=== PATIENT | male | born 1940 | race Caucasian/White ===

== ENCOUNTER → 2016-10-03 | Outpatient (CLI) | payer MEDICARE ==
--- NOTE | 2016-10-03 13:48 | NM ---
EXAMINATION TYPE: NM bone scan whole body DATE OF EXAM: 10/03/2016 1:42 PM COMPARISON: [facility] 09/26/2016 HISTORY: Low back pain Delayed whole-body scanning was performed following the injection of 27.5 mCi Tc 99m MDP. Images wer e acquired 3 hours post injection. FINDINGS: There is a diffuse band of increased uptake in the region of L1 suspicious for an acute compression d eformity. There is some focal uptake within the lateral left knee most likely degenerative in nature. This is b lizz visualized on the posterior image. There is some focal uptake within the C7 level. Correlate fo r degenerative change. Some degenerative changes are at the bilateral wrists. IMPRESSION: 1. Increased uptake in the L1 region corresponds to the compression deformity identified on the plain films suggesting this is likely an acute finding.
== END | disposition home or self-care (01) ==
LOC: RADNMMAIN 09:58
PROVIDERS: ATTEND Physical Medicine & Rehabilitation
DX: M54.5 Low back pain (principal); M48.06 Spinal stenosis, lumbar region; M47.896 Other spondylosis, lumbar region
CPT/HCPCS: 78306; A9503

== ENCOUNTER → 2017-04-01 | Outpatient (CLI) | payer MEDICARE ==
--- NOTE | 2017-04-01 21:48 | US ---
EXAMINATION TYPE: US kidneys/renal and bladder DATE OF EXAM: 04/01/2017 COMPARISON: CT 06/23/2014 CLINICAL HISTORY: 76-year-old male Renal Cyst N28.1. TECHNIQUE: Multiple sonographic images of the kidneys and bladder were obtained. FINDINGS: Right Kidney: 10.4 x 4.4 x 5.0 cm without hydronephrosis. Left Kidney: 10.2 x 5.7 x 5.5 cm without hydronephrosis. There is a cystic structure within the upper pole measuring 2.7 cm. Posterior transmission is present. Internal low-level echoes could be artifac tual or represent some debris. Increased in size from 2.1 cm in 2013. No gross abnormality of the bladder. Both ureteral jets are visualized. IMPRESSION: 1. No hydronephrosis. 2. A 2.7 cm left upper pole renal cyst. Internal echoes could be artifactual or could represent some debris.
== END | disposition home or self-care (01) ==
LOC: RADUSMAIN 17:26
PROVIDERS: ATTEND Family Medicine
DX: N28.1 Cyst of kidney, acquired (principal)
CPT/HCPCS: 76770

== ENCOUNTER → 2018-03-05 | Outpatient (CLI) | payer MEDICARE ==
--- NOTE | 2018-03-05 12:27 | US ---
EXAMINATION TYPE: US venous doppler duplex LE LT DATE OF EXAM: 03/05/2018 12:06 PM COMPARISON: US 08/20/14 CLINICAL HISTORY: [id number] PAIN IN LT LEG,[id number] ACUTE EMBOLISM AND THROMBOSIS. SIDE PERFORMED: Left TECHNIQUE: The lower extremity deep venous system is examined utilizing real time linear array sonog otoniel with graded compression, doppler sonography and color-flow sonography. VESSELS IMAGED: External Iliac Vein (EIV) Common Femoral Vein Deep Femoral Vein Greater Saphenous Vein * Femoral Vein Popliteal Vein Small Saphenous Vein * Proximal Calf Veins (* superficial vessels) Grayscale, color doppler, spectral doppler imaging performed of the deep veins of the left lower extr emity. There is normal flow, compressibility, vascular waveforms. Left Leg: Negative for DVT Superficial thrombus again seen at level of the knee, medially. This is at the level of swelling per patient history and sonographically. IMPRESSION: 1. No sonographic evidence of deep venous arthrosis within the left lower extremity. 2. Superficial venous thrombosis in the region of the patient's pain and swelling medially at the lev el the femoral tibial joint.
== END | disposition home or self-care (01) ==
LOC: RADUSWWP 11:11
PROVIDERS: ATTEND Family Medicine
DX: I82.812 Embolism and thrombosis of superficial veins of left lower extremity (principal)

== ENCOUNTER → 2019-08-17 | Outpatient (CLI) | payer MEDICARE ==
--- NOTE | 2019-08-17 11:03 | XR ---
EXAMINATION TYPE: XR abdomen 2V DATE OF EXAM: 08/17/2019 HISTORY: Pain. Technique: 4 views of the abdomen are submitted. Comparison: None. Findings: There is no convincing evidence of pneumoperitoneum. The Bowel gas pattern is nonspecific and nonobstructive. No sizable air-fluid levels are seen. No mass effects are noted. No renal calcifications are identified. IMPRESSION: 1. Nonspecific nonobstructive bowel gas pattern
== END | disposition home or self-care (01) ==
LOC: RADXRYALE 10:12
PROVIDERS: ATTEND Physician Assistant Medical
DX: R10.84 Generalized abdominal pain (principal)
CPT/HCPCS: 74019

== ENCOUNTER → 2019-09-22 | Outpatient (CLI) | payer MEDICARE ==
--- NOTE | 2019-09-22 09:04 | US ---
EXAMINATION TYPE: US abdomen complete DATE OF EXAM: 09/22/2019 COMPARISON: NONE CLINICAL HISTORY: Diarrhea R19.7. EXAM MEASUREMENTS: Liver Length: 15.9 cm Gallbladder Wall: 0.4 cm CBD: obscured by bowel gas Spleen: 8.8 cm Right Kidney: 10.0 x 4.7 x 4.4 cm Left Kidney: 9.5 x 5.7 x 4.5 cm Severe overlying bowel gas, technically difficult study. Pancreas: Obscured by bowel gas Liver: left lobe obscured by overlying bowel gas, not visualized in its entirity Gallbladder: cholelithiasis, limited visualization Evidence for sonographic Longoria's sign: no CBD: Obscured by overlying bowel gas Spleen: wnl Right Kidney: wnl Left Kidney: partially obscured by bowel gas, cyst measuring 3.8 x 3.2 x 2.8cm Upper IVC: wnl Abd Aorta: wnl Bladder: wnl, prominent vessels seen posterior IMPRESSION: 1. Limited assessment of the liver and pancreas due to bowel gas. 2. Cholelithiasis.common bile duct is obscured by bowel gas. Gallbladder wall measures 4 mm and is th ickened mild cholecystitis in the differential diagnosis.
== END | disposition home or self-care (01) ==
LOC: RADUSWWP 08:05
PROVIDERS: ATTEND Family Medicine
DX: K80.20 Calculus of gallbladder without cholecystitis without obstruction (principal); R93.41 Abnormal radiologic findings on diagnostic imaging of renal pelvis, ureter, or bladder
CPT/HCPCS: 76700; 76857

== ENCOUNTER → 2020-05-04 | Outpatient (CLI) | payer MEDICARE ==
--- NOTE | 2020-05-04 15:30 | CT ---
EXAMINATION TYPE: CT brain wo con DATE OF EXAM: 05/04/2020 COMPARISON: None HISTORY: c/o headaches and dizziness CT DLP: 1108.4 mGycm Automated exposure control for dose reduction was used. Helical imaging through the brain FINDINGS: Periventricular white matter shows patchy low attenuation. Cortical atrophy is likely age-related. Th ere are cerebral vascular calcifications. Mucosal disease present within the bilateral maxillary sinu ses, sphenoid sinus, frontal sinus and ethmoid air cells. Mastoids are well aerated. Calvarium is int act. There is no hemorrhage or hydrocephalus. IMPRESSION: NO ACUTE ABNORMALITY. AGE-RELATED CHANGES OF ATROPHY AND PROBABLE CHRONIC SMALL VESSEL ISCHEMIA. SINU S DISEASE.
== END | disposition home or self-care (01) ==
LOC: RADCTMAIN 14:31
PROVIDERS: ATTEND Family Medicine
DX: G31.1 Senile degeneration of brain, not elsewhere classified (principal)
CPT/HCPCS: 70450

== ENCOUNTER → 2022-05-18 | Outpatient (CLI) | payer MEDICARE ==
--- NOTE | 2022-05-18 11:44 | US ---
EXAMINATION TYPE: US arterial LE single level DATE OF EXAM: 05/18/2022 10:44 AM CLINICAL HISTORY: M79.661 Pain right lower leg, M79.662 Pain left leg. Diabetic: No [place]: No Smoker: Previous Hyperlipidemia: No Hypertension: No TIA/CVA: No Doppler Waveforms: Right: Left: Pulse Volume Recording: Pressure Gradients: Ankle-Brachial Indices: Right: 1.20 Left: 1.25 Toe Brachial Indices: Right: 0.87 Left: 1.04 IMPRESSION: Normal DIANE and TBI values.
== END | disposition home or self-care (01) ==
LOC: RADUSWWP 10:01
PROVIDERS: ATTEND Family Medicine
DX: M79.661 Pain in right lower leg (principal); M79.662 Pain in left lower leg
CPT/HCPCS: 93922

== ENCOUNTER 2022-08-18 08:17 | Emergency (ER) | payer MEDICARE ==
[2022-08-18 08:29] VITALS: TEMP 98.9
[2022-08-18 08:59] VITALS: RESP 16
--- NOTE | 2022-08-18 09:05 | ED ---
Headache HPI - General Chief Complaint: Upper Respiratory Infection Stated Complaint: Cough, headache Time Seen by Provider: 08/18/22 08:35 Source: patient, family, RN notes reviewed Mode of arrival: ambulatory Limitations: no limitations - History of Present Illness Initial Comments: This is an 82-year-old male who presents to the emergency department for coughing, congestion, and headaches. States that over the last 2 days, he has had mild coughing and congestion. Starting last night and early this morning he has complained of a headache to the back of his head. States that he is concerned because he does not frequently get headaches, however he would not describe this as the worst headache of his life. He also denies any visual changes or weakness. He did recently start warfarin for atrial fibrillation, and his pharmacist told him that he was unable to take Tylenol, which he states he would've otherwise taken for his headache. Denies any sick contacts. Denies any fevers, chills, sore throat, dyspnea, chest pain, palpitations, abdominal pain, nausea, vomiting, diarrhea, or back pain. MD Complaint: headache Onset/Timin -: days(s) Onset Description: gradual Location: occipital Other Symptoms: cough Treatments Prior to Arrival: none - Related Data Home Medications Medication Instructions Recorded Confirmed ALPRAZolam [Xanax] 0.5 mg PO BID PRN 04/09/14 09/20/16 Acetaminophen/Diphenhydramine 1 tab PO HS 04/09/14 09/20/16 [Tylenol Pm] Fish Oil/Dha/Epa [Fish Oil 1,200 1 cap PO DAILY 04/09/14 09/20/16 mg Fish Oil] Levothyroxine Sodium [Synthroid] 112 mcg PO DAILY 04/09/14 09/20/16 Omeprazole [PriLOSEC] 20 mg PO AC-BRKFST 04/09/14 09/20/16 Pravastatin Sodium [Pravachol] 20 mg PO HS 04/09/14 09/20/16 Albuterol Nebulized [Ventolin 2.5 mg INHALATION Q4H PRN 09/20/16 09/20/16 Nebulized] Cholecalciferol [Vitamin D3] 1,000 unit PO DAILY 09/20/16 09/20/16 Ferrous Sulfate [Feosol] 325 mg PO DAILY 09/20/16 09/20/16 Naproxen Sodium [Aleve] 440 mg PO BID 09/20/16 09/20/16 Vitamin B Complex 1 cap PO HS 09/20/16 09/20/16 Previous Rx's Medication Instructions Recorded Hydrocodone/Acetaminophen [[place] 1 each PO Q6HR PRN #20 tab 09/20/16 5-325] Molnupiravir [Lagevrio (Eua)] 800 mg PO BID 5 Days #40 cap 08/18/22 Allergies Allergy/AdvReac Type Severity Reaction Status Date / Time No Known Allergies Allergy Verified 08/18/22 08:29 Review of Systems ROS Statement: Those systems with pertinent positive or pertinent negative responses have been documented in the HPI. ROS Other: All systems not noted in ROS Statement are negative. Past Medical History Past Medical History: GERD/Reflux, Hyperlipidemia, Sleep Apnea/CPAP/BIPAP, Thyroid Disorder Additional Past Medical History / Comment(s): CPAP; SUPERFICIAL BLOOD CLOT LEFT LEG History of Any Multi-Drug Resistant Organisms: None Reported Past Surgical History: Hernia Repair Additional Past Surgical History / Comment(s): carpal tunnel Past Anesthesia/Blood Transfusion Reactions: No Reported Reaction Past Psychological History: No Psychological Hx Reported Smoking Status: Former smoker Past Alcohol Use History: None Reported Past Drug Use History: None Reported General Exam Limitations: no limitations General appearance: alert, in no apparent distress Head exam: Present: atraumatic, normocephalic, normal inspection Eye exam: Present: normal appearance, PERRL, EOMI. Absent: scleral icterus, conjunctival injection, periorbital swelling Neck exam: Present: normal inspection. Absent: tenderness, meningismus, lymphadenopathy Respiratory exam: Present: normal lung sounds bilaterally. Absent: respiratory distress, wheezes, rales, rhonchi, stridor Cardiovascular Exam: Present: regular rate, normal rhythm, normal heart sounds. Absent: systolic murmur, diastolic murmur, rubs, gallop, clicks Neurological exam: Present: alert, oriented X3, CN II-XII intact Psychiatric exam: Present: normal affect, normal mood Skin exam: Present: warm, dry, intact, normal color. Absent: rash Course Vital Signs 08/18/22 08/18/22 08:26 08:58 Temperature 98.9 F Pulse Rate 82 71 Respiratory 18 16 Rate Blood Pressure 147/84 124/74 O2 Sat by Pulse 95 95 Oximetry Medical Decision Making - Medical Decision Making This is an 82-year-old male who presents to the emergency department for coughing, congestion, and headaches. Given the lack of headache history and because he recently started warfarin, computed tomography scan of the brain was obtained. I do not identify any signs of intracranial hemorrhage or mass eff ect. Patient did test positive for COVID-19. Prescription for Lagevrio provided to be taken for 5 days. Recommended getting plenty of rest and continuing with symptomatic management. The patient is also instructed to quarantine for 5 days and practice extra precautions for an additional 5 days, including always wearing a mask around others and avoiding travel. Return precautions reviewed in depth, the patient is instructed to return to the emergency department with any new, worsening, or concerning symptoms. Patient verbalized understanding. This case was discussed in detail with the attending ED physician. Presentation, findings, and treatment plan discussed in detail as well. - Lab Data Lab Results 08/18/22 08/18/22 Range/Units 08:33 08:33 Coronavirus (PCR) Detected A (Not Detectd) Influenza Type A RNA Not Detected (Not Detectd) Influenza Type B (PCR) Not Detected (Not Detectd) - Radiology Data Radiology results: report reviewed, image reviewed Disposition Clinical Impression: COVID-19, Headache Disposition: HOME SELF-CARE Instructions (If sedation given, give patient instructions): Coronavirus Disease 2019 (COVID-19), Safely Care for Someone Who Has COVID-19 (ED), How to Recover from COVID-19 at Home (ED) Additional Instructions: Return to the emergency department with any new, worsening, or concerning symptoms. Take the Lagevrio as prescribed for 5 days. Make sure that you are getting plenty of rest and continuing with symptomatic management. You are instructed to quarantine for 5 days and practice extra precautions for an additional 5 days, including always wearing a mask around others and avoiding travel. You may take Tylenol as needed for any headaches or additional pain. Prescriptions: Molnupiravir [Lagevrio (Eua)] 800 mg PO BID 5 Days #40 cap Is patient prescribed a controlled substance at d/c from ED?: No Referrals: Tico Salas DO [Primary Care Provider] - 1-2 days
--- NOTE | 2022-08-18 09:05 | CT ---
EXAMINATION TYPE: CT brain wo con DATE OF EXAM: 08/18/2022 COMPARISON: 05/04/2020 HISTORY: Headache, acute CT DLP: 1217.4 mGycm Automated exposure control for dose reduction was used. FINDINGS: The ventricles, basal cisterns and sulci over the convexities are moderately enlarged consistent with moderate generalized atrophy, appropriate for the patient's age. There is mild chronic ischemic white matter demyelination. No focal parenchymal abnormalities are seen and there is no acute bleed or mass effect. Intraorbital contents appear normal and symmetric. There are mild chronic inflammatory changes in the paranasal sinuses which were seen previously. The mastoid air cells are well aerated. The calvarium is intact. IMPRESSION: 1. NO ACUTE BLEED OR MASS EFFECT. 2. CHRONIC INFLAMMATORY CHANGES IN THE PARANASAL SINUSES WHICH ARE STABLE. 3. AGE-APPROPRIATE SENESCENT CHANGES UNCHANGED COMPARED TO PREVIOUS
[2022-08-18 10:22] VITALS: BP 148/68; PULSE 77
== END 2022-08-18 10:22 | disposition home or self-care (01) ==
LOC: EC 08:17
DX: U07.1 COVID-19 (principal); K21.9 Gastro-esophageal reflux disease without esophagitis; E78.5 Hyperlipidemia, unspecified; E07.9 Disorder of thyroid, unspecified; Z79.890 Hormone replacement therapy; Z87.891 Personal history of nicotine dependence
CPT/HCPCS: 70450; 87502; 87635; 99284

== ENCOUNTER 2024-06-03 10:09 | Emergency (ER) | payer MEDICARE ==
[2024-06-03 10:19] VITALS: TEMP 98.4
--- NOTE | 2024-06-03 10:49 | ED ---
Recheck HPI - General Chief Complaint: Recheck/Abnormal Lab/Rx Stated Complaint: Hypertenison Time Seen by Provider: 06/03/24 10:47 Source: patient, RN notes reviewed Mode of arrival: ambulatory Limitations: no limitations - History of Present Illness Initial Comments: 83-year-old male presenting to the ER with a chief complaint of elderly blood pressures. Patient reports this morning he woke up around 6 AM and took his medications around 630. He states he took his blood pressure as instructed by Dr. Arevalo's office and was found to have his blood pressure be 180s/80s. He states he is not on any antihypertensive medications typically. He does have a history of atrial fibrillation and is taking warfarin. He is also taking Synthroid 150 mcg. He denies any chest pain, shortness of breath, palpitations or other complaints when found to have blood pressure elevated. He does report drinking 2 cups of coffee this morning prior to taking his blood pressure. He states he typically feels lightheaded but states this is when he lifts his head up from a downward position. No history of vertigo. Patient denies any current chest pain, shortness of breath, dizziness, lightheadedness, palpitations, abdominal pain, constipation/diarrhea, urinary complaints or peripheral edema. - Related Data Home Medications Medication Instructions Recorded Confirmed ALPRAZolam [Xanax] 0.5 mg PO BID PRN 04/09/14 09/20/16 Acetaminophen/Diphenhydramine 1 tab PO HS 04/09/14 09/20/16 [Tylenol Pm] Fish Oil/Dha/Epa [Fish Oil 1,200 1 cap PO DAILY 04/09/14 09/20/16 mg Fish Oil] Levothyroxine Sodium [Synthroid] 112 mcg PO DAILY 04/09/14 09/20/16 Omeprazole [PriLOSEC] 20 mg PO AC-BRKFST 04/09/14 09/20/16 Pravastatin Sodium [Pravachol] 20 mg PO HS 04/09/14 09/20/16 Albuterol Nebulized [Ventolin 2.5 mg INHALATION Q4H PRN 09/20/16 09/20/16 Nebulized] Cholecalciferol [Vitamin D3] 1,000 unit PO DAILY 09/20/16 09/20/16 Ferrous Sulfate [Feosol] 325 mg PO DAILY 09/20/16 09/20/16 Naproxen Sodium [Aleve] 440 mg PO BID 09/20/16 09/20/16 Vitamin B Complex 1 cap PO HS 09/20/16 09/20/16 Previous Rx's Medication Instructions Recorded Hydrocodone/Acetaminophen [[place] 1 each PO Q6HR PRN #20 tab 09/20/16 5-325] Molnupiravir [Lagevrio (Eua)] 800 mg PO BID 5 Days #40 cap 08/18/22 Allergies Allergy/AdvReac Type Severity Reaction Status Date / Time No Known Allergies Allergy Verified 06/03/24 10:19 Review of Systems ROS Statement: Those systems with pertinent positive or pertinent negative responses have been documented in the HPI. ROS Other: All systems not noted in ROS Statement are negative. Past Medical History Past Medical History: Atrial Fibrillation, GERD/Reflux, Hyperlipidemia, Sleep Apnea/CPAP/BIPAP, Thyroid Disorder Additional Past Medical History / Comment(s): CPAP; SUPERFICIAL BLOOD CLOT LEFT LEG History of Any Multi-Drug Resistant Organisms: None Reported Past Surgical History: Hernia Repair Additional Past Surgical History / Comment(s): carpal tunnel Past Anesthesia/Blood Transfusion Reactions: No Reported Reaction Past Psychological History: No Psychological Hx Reported Smoking Status: Former smoker Past Alcohol Use History: None Reported Past Drug Use History: None Reported General Exam Limitations: no limitations General appearance: alert, in no apparent distress Respiratory exam: Present: normal lung sounds bilaterally. Absent: respiratory distress, wheezes, rales, rhonchi, stridor Cardiovascular Exam: Present: regular rate, normal rhythm, normal heart sounds. Absent: systolic murmur, diastolic murmur, rubs, gallop, clicks Extremities exam: Present: normal inspection, full ROM, normal capillary refill. Absent: tenderness, pedal edema, joint swelling, calf tenderness Neurological exam: Present: alert, oriented X3, CN II-XII intact Skin exam: Present: warm, dry, intact, normal color. Absent: rash Course Vital Signs 06/03/24 06/03/24 10:16 12:24 Temperature 98.4 F Pulse Rate 85 75 Respiratory 20 18 Rate Blood Pressure 147/93 136/80 O2 Sat by Pulse 93 L 95 Oximetry Medical Decision Making - Medical Decision Making Was pt. sent in by a medical professional or institution (, PA, MAINTENANCE FOREMAN, urgent care, hospital, or usp...) When possible be specific @ -No Did you speak to anyone other than the patient for history (EMS, parent, family, police, friend...)? What history was obtained from this source @ -Daughter, at bedside, aiding in HPI and past medical history. Did you review nursing and triage notes (agree or disagree)? Why? @ -I reviewed and agree with nursing and triage notes Were old charts reviewed (outside hosp., previous admission, EMS record, old EKG, old radiological studies, urgent care reports/EKG's, usp records)? Report findings @ -No old charts were reviewed Differential Diagnosis (chest pain, altered mental status, abdominal pain women, abdominal pain men, vaginal bleeding, weakness, fever, dyspnea, syncope, headache, dizziness, GI bleed, back pain, seizure, CVA, palpatations, mental health, musculoskeletal)? @ -Hypertension, hypertension urgency, hypertension emergency, electrolyte abnormality This list is not meant to be all-inclusive EKG interpreted by me (3pts min.). @ -As above X-rays interpreted by me (1pt min.). @ -None done CT interpreted by me (1pt min.). @ -None done U/S interpreted by me (1pt. min.). @ -None done What testing was considered but not performed or refused? (CT, X-rays, U/S, labs)? Why? @ -None What meds were considered but not given or refused? Why? @ -None Did you discuss the management of the patient with other professionals (professionals i.e. , PA, MAINTENANCE FOREMAN, lab, RT, psych nurse, licensed master social worker, head automatic sawyer, teacher, technology officer, insurance case manager)? Give summary @ -No Was smoking cessation discussed for >3mins.? @ -No Was critical care preformed (if so, how long)? @ -No Were there social determinants of health that impacted care today? How? (Homelessness, low income, unemployed, alcoholism, drug addiction, transportation, low edu. Level, literacy, decrease access to med. care, fdc, rehab)? @ -No Was there de-escalation of care discussed even if they declined (Discuss DNR or withdrawal of care, Hospice)? DNR status @ -No What co-morbidities impacted this encounter? (DM, HTN, Smoking, COPD, CAD, Cancer, CVA, ARF, Chemo, Hep., AIDS, mental health diagnosis, sleep apnea, morbid obesity)? @ -thyroid disorder Was patient admitted / discharged? Hospital course, mention meds given and route, prescriptions, significant lab abnormalities, going to OR and other pertinent info. @ -83-year-old male presented the ER with a chief complaint of elevated blood pressure. Patient is not on any antihypertensive medications. History and physical exam completed. Vitals upon arrival marker for temperature 98.4, heart rate 85, respiratory rate 20, blood pressure 147/93, oxygen saturation 93% on room air. Patient in no signs of acute distress and nontoxic-appearing. Exam unremarkable. Laboratory studies obtained unimpressive. TSH 0.952. EKG showing sinus rhythm with no acute evidence of infarct or ischemia. Upon reevaluation, patient resting comfortably in exam room in no signs of acute distress. Results discussed with patient, all questions answered. Advised patient to follow-up with PCP for further evaluation of blood pressure. Had a lengthy discussion with patient about variability of blood pressures and multiple factors affect blood pressures. Patient verbally expressed understanding and agreement. Patient stable for discharge at this time. Return parameters discussed. Patient discharged in stable condition. Case discussed with ED attending, Dr. Collins. Undiagnosed new problem with uncertain prognosis? @ -No Drug Therapy requiring intensive monitoring for toxicity (Heparin, Nitro, Insulin, Cardizem)? @ -No Were any procedures done? @ -No Diagnosis/symptom? @ -Blood pressure check Acute, or Chronic, or Acute on Chronic? @ -acute Uncomplicated (without systemic symptoms) or Complicated (systemic symptoms)? @ -uncomplicated Side effects of treatment? @ -No Exacerbation, Progression, or Severe Exacerbation? @ -No Poses a threat to life or bodily function? How? (Chest pain, [place], [place], pneumonia, PE, COPD, DKA, ARF, appy, cholecystitis, CVA, Diverticulitis, Homicidal, Suicidal, threat to staff... and all critical care pts) @ -No - Lab Data Result diagrams: 06/03/24 10:53 06/03/24 10:53 Lab Results 06/03/24 06/03/24 Range/Units 10:53 10:53 WBC 10.5 (3.8-10.6) k/uL RBC 4.27 L (4.30-5.90) m/uL Hgb 14.4 (13.0-17.5) gm/dL Hct 43.3 (39.0-53.0) % MCV 101.5 H (80.0-100.0) fL MCH 33.6 (25.0-35.0) pg MCHC 33.1 (31.0-37.0) g/dL RDW 12.3 (11.5-15.5) % Plt Count 343 (150-450) k/uL MPV 7.5 Neutrophils % 91 % Lymphocytes % 5 % Monocytes % 3 % Eosinophils % 0 % Basophils % 0 % Neutrophils # 9.6 H (1.3-7.7) k/uL Lymphocytes # 0.5 L (1.0-4.8) k/uL Monocytes # 0.4 (0-1.0) k/uL Eosinophils # 0.1 (0-0.7) k/uL Basophils # 0.0 (0-0.2) k/uL Sodium 137 (137-145) mmol/L Potassium 4.2 (3.5-5.1) mmol/L Chloride 105 (98-107) mmol/L Carbon Dioxide 24 (22-30) mmol/L Anion Gap 8 mmol/L BUN 22 H (9-20) mg/dL Creatinine 1.01 (0.66-1.25) mg/dL Est GFR (CKD-EPI)AfAm 79 (>60 ml/min/1.73 sqM) Est GFR (CKD-EPI)NonAf 68 (>60 ml/min/1.73 sqM) Glucose 111 H (74-99) mg/dL Calcium 9.6 (8.4-10.2) mg/dL Total Bilirubin 0.7 (0.2-1.3) mg/dL AST 32 (17-59) U/L ALT 22 (4-49) U/L Alkaline Phosphatase 67 (38-126) U/L Total Protein 7.1 (6.3-8.2) g/dL Albumin 4.3 (3.5-5.0) g/dL TSH 0.952 (0.465-4.680) mIU/L - EKG Data -: EKG Interpreted by Me EKG Comments: EKG taken at 11: 44 showing a sinus rhythm. No acute ST segment or T wave abnormalities. Ventricular rate 65, NM interval 182, QRS duration 112, QT/QTc 410/422. Disposition Clinical Impression: Blood pressure check Disposition: HOME SELF-CARE Condition: Stable Instructions (If sedation given, give patient instructions): How to Take a Blood Pressure (ED) Additional Instructions: Continue take medications as prescribed. Follow-up with PCP next 1 to 2 days. Return to the ER for any new or worsening concerns. Is patient prescribed a controlled substance at d/c from ED?: No Referrals: Tico Salas DO [Primary Care Provider] - 1-2 days Time of Disposition: 12:15
[2024-06-03 11:16] LABS: Basophils % (A) 0 %; Eosinophils # (A) 0.1 k/uL (0-0.7); Eosinophils % (A) 0 %; HCT 43.3 % (39.0-53.0); HGB 14.4 gm/dL (13.0-17.5); Lymphocytes # (A) 0.5 k/uL (1.0-4.8); Lymphocytes % (A) 5 %; MCH 33.6 pg (25.0-35.0); MCHC 33.1 g/dL (31.0-37.0); MCV 101.5 fL (80.0-100.0); Mean Platelet Volume 7.5; Monocytes # (A) 0.4 k/uL (0-1.0); Monocytes % (A) 3 %; Neutrophils # (A) 9.6 k/uL (1.3-7.7); Neutrophils % (A) 91 %; Platelet Count 343 k/uL (150-450); RBC 4.27 m/uL (4.30-5.90); RDW 12.3 % (11.5-15.5); WBC 10.5 k/uL (3.8-10.6)
[2024-06-03 11:28] LABS: ALT 22 U/L (4-49); AST 32 U/L (17-59); African American GFR (CKD) 79 (>60 ml/min/1.73 sqM); Albumin 4.3 g/dL (3.5-5.0); Alkaline Phosphatase 67 U/L (38-126); Anion Gap 8 mmol/L; Blood Urea Nitrogen 22 mg/dL (9-20); Calcium 9.6 mg/dL (8.4-10.2); Carbon Dioxide 24 mmol/L (22-30); Chloride 105 mmol/L (98-107); Glucose 111 mg/dL (74-99); Non-African American GFR(CKD) 68 (>60 ml/min/1.73 sqM); Potassium 4.2 mmol/L (3.5-5.1); Sodium 137 mmol/L (137-145); Total Bilirubin 0.7 mg/dL (0.2-1.3); Total Protein 7.1 g/dL (6.3-8.2)
[2024-06-03 12:26] VITALS: BP 136/80; PULSE 75; RESP 18
== END 2024-06-03 12:26 | disposition home or self-care (01) ==
LOC: EC 10:09
CPT/HCPCS: 36415; 80053; 84443; 85025; 93005; 99283

== ENCOUNTER 2025-03-18 19:45 | Observation (INO) | payer MEDICARE ==
[2025-03-18 20:21] VITALS: TEMP 97.7
[2025-03-18 20:47] LABS: Basophils # (A) 0.11 10*3/uL (0.00-0.10); Basophils % (A) 1.5 %; Eosinophils # (A) 0.58 10*3/uL (0.04-0.35); Eosinophils % (A) 7.7 %; HCT 39.2 % (39.6-50.0); HGB 13.7 g/dL (13.0-17.0); Lymphocytes # (A) 1.62 10*3/uL (0.90-5.00); Lymphocytes % (A) 21.5 %; MCH 34.1 pg (27.0-32.0); MCHC 34.9 g/dL (32.0-37.0); MCV 97.5 fL (80.0-97.0); Mean Platelet Volume 9.2 fL (9.5-12.2); Monocytes # (A) 0.77 10*3/uL (0.20-1.00); Monocytes % (A) 10.2 %; Neutrophils # (A) 4.42 10*3/uL (1.80-7.70); Neutrophils % (A) 58.8 %; Platelet Count 282 10*3/uL (140-440); RBC 4.02 10*6/uL (4.40-5.60); RDW 12.7 % (11.5-14.5); WBC 7.52 10*3/uL (4.50-10.00)
[2025-03-18 21:05] LABS: INR 2.4 (<1.2); Partial Thromboplastin Time 29.5 sec (22.0-30.0); Prothrombin Time 23.7 sec (10.0-12.5)
[2025-03-18 21:13] LABS: ALT 23 U/L (4-49); AST 34 U/L (17-59); African American GFR (CKD) 67 (>60 ml/min/1.73 sqM); Albumin 4.5 g/dL (3.5-5.0); Alkaline Phosphatase 66 U/L (38-126); Anion Gap 12 mmol/L; Blood Urea Nitrogen 26 mg/dL (9-20); Calcium 9.7 mg/dL (8.4-10.2); Carbon Dioxide 23 mmol/L (22-30); Chloride 104 mmol/L (98-107); Glucose 99 mg/dL (74-99); Magnesium 2.2 mg/dL (1.6-2.3); Non-African American GFR(CKD) 58 (>60 ml/min/1.73 sqM); Sodium 139 mmol/L (137-145); Total Bilirubin 0.4 mg/dL (0.2-1.3); Total Protein 7.4 g/dL (6.3-8.2)
--- NOTE | 2025-03-18 23:01 | XR ---
EXAMINATION TYPE: XR chest 2V DATE OF EXAM: 03/18/2025 9:16 PM CLINICAL INDICATION:Male, 84 years old with history of Chest Pain; [facility] COMPARISON: None TECHNIQUE: XR chest 2V Frontal view of the chest. FINDINGS: Lungs/Pleura: There is no evidence of pleural effusion, focal consolidation, or pneumothorax. Pulmonary vascularity: Unremarkable. Heart/mediastinum: Cardiomediastinal silhouette is unremarkable. Musculoskeletal: No acute osseous pathology. Other findings: Gaseous distended loops of bowel are seen across the upper abdomen measuring up to 7. 3 cm. IMPRESSION: No acute cardiopulmonary disease/process. Gaseous distended loops of bowel are seen across the abdomen concerning for possible bowel obstructio n versus ileus. Further workup is recommended with a CT abdomen pelvis. [facility], , 03/18/2025 10:59 PM
[2025-03-19] MEDS ORDERED: NALOXONE 0.4 MG/ML 1 ML VIAL IV PRN (00:11)
[2025-03-19] MEDS ORDERED: ONDANSETRON 4 MG/2 ML VIAL IVP PRN (00:11)
[2025-03-19] MEDS: ASPIRIN 81 MG PO STA (00:12)
--- NOTE | 2025-03-19 00:12 | ED ---
General Adult HPI - General Chief complaint: Chest Pain Stated complaint: Chest Pain Time Seen by Provider: 03/18/25 23:00 Source: patient, family, RN notes reviewed, old records reviewed Mode of arrival: wheelchair Limitations: physical limitation - History of Present Illness Initial comments: Patient is an 84-year-old male who presents emergency department complaint of chest pain. States he describes as an acid reflux burning sensation over the middle of his chest. Currently does not have it. Has noticed it more lately. No obvious association with eating. Today, lasted approximately 4 hours and resolved on its own. Has a history of A-fib, acid reflux, hyperlipidemia, thyroid disorder. No history of CAD or cardiac stents per patient. Is on Coumadin. Has been compliant with all medications. Currently is asymptomatic. I evaluate the patient after workup was completed in triage and he was placed in room 8.Denies any diaphoresis or nausea when the pain was present. Denies any radiation of the pain when it is present. - Related Data Home Medications Medication Instructions Recorded Confirmed ALPRAZolam [Xanax] 0.5 mg PO BID PRN 04/09/14 09/20/16 Acetaminophen/Diphenhydramine 1 tab PO HS 04/09/14 09/20/16 [Tylenol Pm] Fish Oil/Dha/Epa [Fish Oil 1,200 1 cap PO DAILY 04/09/14 09/20/16 mg Fish Oil] Levothyroxine Sodium [Synthroid] 112 mcg PO DAILY 04/09/14 09/20/16 Omeprazole [PriLOSEC] 20 mg PO AC-BRKFST 04/09/14 09/20/16 Pravastatin Sodium [Pravachol] 20 mg PO HS 04/09/14 09/20/16 Albuterol Nebulized [Ventolin 2.5 mg INHALATION Q4H PRN 09/20/16 09/20/16 Nebulized] Cholecalciferol [Vitamin D3] 1,000 unit PO DAILY 09/20/16 09/20/16 Ferrous Sulfate [Feosol] 325 mg PO DAILY 09/20/16 09/20/16 Naproxen Sodium [Aleve] 440 mg PO BID 09/20/16 09/20/16 Vitamin B Complex 1 cap PO HS 09/20/16 09/20/16 Previous Rx's Medication Instructions Recorded Hydrocodone/Acetaminophen [[place] 1 each PO Q6HR PRN #20 tab 09/20/16 5-325] Molnupiravir [[place]vrio (Eua)] 800 mg PO BID 5 Days #40 cap 08/18/22 Allergies Allergy/AdvReac Type Severity Reaction Status Date / Time No Known Allergies Allergy Verified 03/18/25 20:21 Review of Systems ROS Statement: Those systems with pertinent positive or pertinent negative responses have been documented in the HPI. Review of Systems: CONST: Denies fever EYES: Denies blurry vision ENT: Denies nasal congestion C/V: Denies Chest pain RESP: Denies shortness of breath GI: Denies abdominal pain : Denies dysuria SKIN: Denies rash. MSK: Denies joint pain. NEURO: Denies headache ROS Other: All systems not noted in ROS Statement are negative. Past Medical History Past Medical History: Atrial Fibrillation, GERD/Reflux, Hyperlipidemia, Sleep Apnea/CPAP/BIPAP, Thyroid Disorder Additional Past Medical History / Comment(s): CPAP; SUPERFICIAL BLOOD CLOT LEFT LEG History of Any Multi-Drug Resistant Organisms: None Reported Past Surgical History: Hernia Repair Additional Past Surgical History / Comment(s): carpal tunnel Past Anesthesia/Blood Transfusion Reactions: No Reported Reaction Past Psychological History: No Psychological Hx Reported Smoking Status: Former smoker Past Alcohol Use History: None Reported Past Drug Use History: None Reported General Exam - General Exam Comments Initial Comments: General: Appears in no acute distress. HEAD: Normal with no signs of head trauma. EYES: PERRLA, EOMI, conjunctiva normal, no discharge. ENT: Hearing grossly intact, normal oropharynx. RESPIRATORY: Clear breath sounds bilaterally. No wheezes, rales, or rhonchi. C/V: Regular rate and rhythm. S1 and S2 auscultated, no edema, peripheral pulses 2+ and intact throughout ABD: Abd is soft, nontender, nondistended EXT: no obvious deformity SKIN: No rashes or lesions observed on exposed skin. NEURO: Alert and oriented x 4. Limitations: physical limitation Course Vital Signs 03/18/25 03/18/25 20:16 22:43 Temperature 97.7 F Pulse Rate 60 58 L Respiratory 16 18 Rate Blood Pressure 122/70 131/82 O2 Sat by Pulse 95 97 Oximetry Medical Decision Making - Medical Decision Making Was pt. sent in by a medical professional or institution (, PA, METAL CASKET MAKER, urgent care, hospital, or intermediate...) When possible be specific @ -No Did you speak to anyone other than the patient for history (EMS, parent, family, police, friend...)? What history was obtained from this source @ -No Did you review nursing and triage notes (agree or disagree)? Why? @ -I reviewed and agree with nursing and triage notes Were old charts reviewed (outside hosp., previous admission, EMS record, old EKG, old radiological studies, urgent care reports/EKG's, intermediate records)? Report findings @ -Reviewed EKG from May 2024 with no significant acute change. Differential Diagnosis (chest pain, altered mental status, abdominal pain women, abdominal pain men, vaginal bleeding, weakness, fever, dyspnea, syncope, headache, dizziness, GI bleed, back pain, seizure, CVA, palpatations, mental health, musculoskeletal)? @ -Differential Chest Pain: Stable Angina, Unstable Angina, STEMI, NSTEMI Aortic Dissection, Pneumothorax, Musculoskeletal, Esophageal Spasm GERD, Cholecystitis, Pancreatitis, Zoster, this is not meant to be an all-inclusive list. EKG interpreted by me (3pts min.). @ -As above X-rays interpreted by me (1pt min.). @ -Chest x-ray reveals no obvious acute cardiopulmonary process. CT interpreted by me (1pt min.). @ -None done U/S interpreted by me (1pt. min.). @ -None done What testing was considered but not performed or refused? (CT, X-rays, U/S, labs)? Why? @ -None What meds were considered but not given or refused? Why? @ -None Did you discuss the management of the patient with other professionals (professionals i.e. , PA, METAL CASKET MAKER, lab, RT, psych nurse, forensic social worker, cardroom worker, teacher, real estate loan officer, caser up)? Give summary @ -Discussed with admitting provider, Dr. Peña who accepted the admission. Was smoking cessation discussed for >3mins.? @ -No Was critical care preformed (if so, how long)? @ -No Were there social determinants of health that impacted care today? How? (Homelessness, low income, unemployed, alcoholism, drug addiction, transportation, low edu. Level, literacy, decrease access to med. care, care home, rehab)? @ -No Was there de-escalation of care discussed even if they declined (Discuss DNR or withdrawal of care, Hospice)? DNR status @ -No What co-morbidities impacted this encounter? (DM, HTN, Smoking, COPD, CAD, Cancer, CVA, ARF, Chemo, Hep., AIDS, mental health diagnosis, sleep apnea, morbid obesity)? @ -None Was patient admitted / discharged? Hospital course, mention meds given and route, prescriptions, significant lab abnormalities, going to OR and other pertinent info. @ -Presents emergency department complaining of chest pain. Vital signs are within acceptable limits. Symptoms currently resolved. He was complaining of some possible mild constipation but has had normal bowel movements for the last couple days as well as still passing gas. No nausea or vomiting. No concern for acute blockage at this time. He currently is resting comfortably. Workup was completed while he was in triage. Labs are remarkable for a negative troponin 0.014. Patient has a therapeutic INR of 2.4. Remainder the workup unremarkable. EKG unremarkable. Chest x-ray unremarkable. Does show some dilated bowel loops however on prior x-rays it appears to be present as well. I discussed results with the patient. He will be admitted to cardiac observation for monitoring. Will trend the troponin. Echo ordered. He was in agreement this plan. Cardiology consulted. I spoke with the admitting provider Dr. Peña who accepted the admission. Undiagnosed new problem with uncertain prognosis? @ -No Drug Therapy requiring intensive monitoring for toxicity (Heparin, Nitro, Insulin, Cardizem)? @ -No Were any procedures done? @ -No Diagnosis/symptom? @ -Chest pain Acute, or Chronic, or Acute on Chronic? @ -Acute Uncomplicated (without systemic symptoms) or Complicated (systemic symptoms)? @ -Complicated Side effects of treatment? @ -No Exacerbation, Progression, or Severe Exacerbation? @ -No Poses a threat to life or bodily function? How? (Chest pain, [place], OR, pneumonia, PE, COPD, DKA, ARF, appy, cholecystitis, CVA, Diverticulitis, Homicidal, Suicidal, threat to staff... and all critical care pts) @ -Potentially, yes - Lab Data Result diagrams: 03/18/25 20:34 03/18/25 20:34 Lab Results 06/26/25 06/26/25 06/26/25 Range/Units 20:34 20:34 20:34 WBC 7.52 (4.50-10.00) 10*3/uL RBC 4.02 L (4.40-5.60) 10*6/uL Hgb 13.7 (13.0-17.0) g/dL Hct 39.2 L (39.6-50.0) % MCV 97.5 H (80.0-97.0) fL MCH 34.1 H (27.0-32.0) pg MCHC 34.9 (32.0-37.0) g/dL Plt Count 282 (140-440) 10*3/uL MPV 9.2 L (9.5-12.2) fL Immature Gran % (Auto) 0.3 % Neutrophils % 58.8 % Lymphocytes % 21.5 % Monocytes % 10.2 % Eosinophils % 7.7 % Basophils % 1.5 % Immature Gran # 0.02 (0.00-0.04) 10*3/uL Neutrophils # 4.42 (1.80-7.70) 10*3/uL Lymphocytes # 1.62 (0.90-5.00) 10*3/uL Monocytes # 0.77 (0.20-1.00) 10*3/uL Eosinophils # 0.58 H (0.04-0.35) 10*3/uL Basophils # 0.11 H (0.00-0.10) 10*3/uL PT 23.7 H (10.0-12.5) sec INR 2.4 H (<1.2) APTT 29.5 (22.0-30.0) sec Sodium 139 (137-145) mmol/L Potassium 4.0 (3.5-5.1) mmol/L Chloride 104 (98-107) mmol/L Carbon Dioxide 23 (22-30) mmol/L Anion Gap 12 mmol/L BUN 26 H (9-20) mg/dL Creatinine 1.15 (0.66-1.25) mg/dL Est GFR (CKD-EPI)AfAm 67 (>60 ml/min/1.73 sqM) Est GFR (CKD-EPI)NonAf 58 (>60 ml/min/1.73 sqM) Glucose 99 (74-99) mg/dL Calcium 9.7 (8.4-10.2) mg/dL Magnesium 2.2 (1.6-2.3) mg/dL Total Bilirubin 0.4 (0.2-1.3) mg/dL AST 34 (17-59) U/L ALT 23 (4-49) U/L Alkaline Phosphatase 66 (38-126) U/L Troponin I (0.000-0.034) ng/mL Total Protein 7.4 (6.3-8.2) g/dL Albumin 4.5 (3.5-5.0) g/dL // Range/Units 20:34 WBC (4.50-10.00) 10*3/uL RBC (4.40-5.60) 10*6/uL Hgb (13.0-17.0) g/dL Hct (39.6-50.0) % MCV (80.0-97.0) fL MCH (27.0-32.0) pg MCHC (32.0-37.0) g/dL Plt Count (140-440) 10*3/uL MPV (9.5-12.2) fL Immature Gran % (Auto) % Neutrophils % % Lymphocytes % % Monocytes % % Eosinophils % % Basophils % % Immature Gran # (0.00-0.04) 10*3/uL Neutrophils # (1.80-7.70) 10*3/uL Lymphocytes # (0.90-5.00) 10*3/uL Monocytes # (0.20-1.00) 10*3/uL Eosinophils # (0.04-0.35) 10*3/uL Basophils # (0.00-0.10) 10*3/uL PT (10.0-12.5) sec INR (<1.2) APTT (22.0-30.0) sec Sodium (137-145) mmol/L Potassium (3.5-5.1) mmol/L Chloride (98-107) mmol/L Carbon Dioxide (22-30) mmol/L Anion Gap mmol/L BUN (9-20) mg/dL Creatinine (0.66-1.25) mg/dL Est GFR (CKD-EPI)AfAm (>60 ml/min/1.73 sqM) Est GFR (CKD-EPI)NonAf (>60 ml/min/1.73 sqM) Glucose (74-99) mg/dL Calcium (8.4-10.2) mg/dL Magnesium (1.6-2.3) mg/dL Total Bilirubin (0.2-1.3) mg/dL AST (17-59) U/L ALT (4-49) U/L Alkaline Phosphatase (38-126) U/L Troponin I 0.014 (0.000-0.034) ng/mL Total Protein (6.3-8.2) g/dL Albumin (3.5-5.0) g/dL - EKG Data -: EKG Interpreted by Me EKG Comments: 12-lead Electrocardiogram Interpretation Note EKG was reviewed and interpreted by myself. 12-lead ECG performed at 2028 is interpreted by me as revealing sinus bradycardia at a rate of 58 beats per minute. [place] is normal. ID interval is 203 ms, QRS durations 108 ms, QTc is 409 ms.. There were no ST or T wave abnormalities to suggest myocardial ischemia or injury. R wave progression across the precordium was satisfactory. By my interpretation this EKG is non-diagnostic for acute ischemia. 12-lead Electrocardiogram Interpretation Note EKG was reviewed and interpreted by myself. 12-lead ECG performed at 2116 is interpreted by me as revealing sinus bradycardia at a rate of 52 beats per minute. [place] is normal. ID interval is 198 ms, QRS duration is 104 ms, QTc is 395 ms.. There were no ST or T wave abnormalities to suggest myocardial ischemia or injury. R wave progression across the precordium was satisfactory. By my interpretation this EKG is non-diagnostic for acute ischemia. Disposition Clinical Impression: Chest pain Disposition: ADMITTED IP TO THIS HOSP Condition: Stable Time of Disposition: 00:00
[2025-03-19] MEDS ORDERED: IOPAMIDOL CONTRAST (ORAL USE) VIAL PO PRN (09:33)
--- NOTE | 2025-03-19 09:36 | P.HPIM ---
History of Present Illness H&P Date: 03/18/25 Chief Complaint: Chest pain 84-year-old male with A-fib on Coumadin, Patient presented with chest pain that started 2-3 days ago while eating. The pain is described as indigestion-like, associated with gas, and located in the middle of the chest. The pain has been occurring off and on for the past 2-3 days. He denies sweating or nausea associated with the pain. The patient reports recent low blood pressure and swollen ankles. He uses a cane for walking and reports difficulty urinating. Patient denies any fevers chills, denies any GI bleeding. Former smoker, quit long ago. Uses a cane for mobility assistance. review of systems Pertinent positives as noted in HPI. All other systems were reviewed and are negative Cardiovascular: Positive for chest pain, described as indigestion-like with gas. Denies sweating or nausea. Gastrointestinal: Reports bloating and need to use the bathroom after pain episodes. Genitourinary: Reports difficulty urinating. Musculoskeletal: Reports swollen ankles. Constitutional: Denies fever or chills. Respiratory: Denies shortness of breath. on exam Constitutional: No acute distress, conversant, pleasant Eyes: Anicteric sclerae, moist conjunctiva, Pupils equal round reactive to light ENMT: NC/AT Oropharynx clear, no erythema, or exudates Neck: Supple, no masses, or JVD No carotid bruits No thyromegaly Lungs: Clear to auscultation Clear to percussion Normal respiratory effort, no accessory muscle use Cardiovascular: Heart regular in rate and rhythm, No murmurs, gallops, or rubs No peripheral edema Abdominal: Distended Discomfort to deep palpation of the suprapubic region, no guarding, rebound or rigidity Abdomen moving with respiration Normoactive bowel sounds Extremities: No digital cyanosis No clubbing Pedal pulses intact and symmetrical Radial pulses intact and symmetrical No calf tenderness Psychiatric: Alert and oriented to person, place and time Appropriate affect fair judgement Neuro Muscles Strength 5/5 in all 4 extremities Sensation to light touch grossly present throughout Cranial nerves II-XII grossly intact Past Medical History Past Medical History: Atrial Fibrillation, GERD/Reflux, Hyperlipidemia, Sleep Apnea/CPAP/BIPAP, Thyroid Disorder Additional Past Medical History / Comment(s): CPAP; SUPERFICIAL BLOOD CLOT LEFT LEG History of Any Multi-Drug Resistant Organisms: None Reported Past Surgical History: Hernia Repair Additional Past Surgical History / Comment(s): carpal tunnel Past Anesthesia/Blood Transfusion Reactions: No Reported Reaction Past Psychological History: No Psychological Hx Reported Smoking Status: Former smoker Past Alcohol Use History: None Reported Past Drug Use History: None Reported Medications and Allergies Home Medications Medication Instructions Recorded Confirmed Type Fish Oil/Dha/Epa [Fish Oil 1,200 1 cap PO DAILY 04/09/14 03/19/25 History mg Fish Oil] Vitamin B Complex 1 cap PO HS 09/20/16 03/19/25 History Cholecalciferol [Vitamin D3 (25 25 mcg PO DAILY 03/19/25 03/19/25 History Mcg = 1000 Iu)] Levothyroxine Sodium [Synthroid] 150 mcg PO DAILY 03/19/25 03/19/25 History Omeprazole [PriLOSEC] 40 mg PO HS 03/19/25 03/19/25 History Warfarin [Coumadin] 1.5 mg PO MOFR 03/19/25 03/19/25 History Warfarin [Coumadin] 3 mg PO SUTUWETHSA 03/19/25 03/19/25 History traZODone HCL [Desyrel] 50 mg PO HS 03/19/25 03/19/25 History Allergies Allergy/AdvReac Type Severity Reaction Status Date / Time No Known Allergies Allergy Verified 03/19/25 08:15 Physical Exam Vitals: Vital Signs Temp Pulse Resp BP Pulse Ox 03/18/25 22:43 58 L 18 131/82 97 03/18/25 20:16 97.7 F 60 16 122/70 95 Intake and Output 03/18/25 03/18/25 03/19/25 14:59 22:59 06:59 Other: Weight 98.883 kg Results CBC & Chem 7: 03/18/25 20:34 03/18/25 20:34 Labs: Abnormal Lab Results - Last 24 Hours (Table) 03/18/25 03/18/25 03/18/25 Range/Units 20:34 20:34 20:34 RBC 4.02 L (4.40-5.60) 10*6/uL Hct 39.2 L (39.6-50.0) % MCV 97.5 H (80.0-97.0) fL MCH 34.1 H (27.0-32.0) pg MPV 9.2 L (9.5-12.2) fL Eosinophils # 0.58 H (0.04-0.35) 10*3/uL Basophils # 0.11 H (0.00-0.10) 10*3/uL PT 23.7 H (10.0-12.5) sec INR 2.4 H (<1.2) BUN 26 H (9-20) mg/dL Assessment and Plan Assessment: 84-year-old male with A-fib on Coumadin presents with chest pain of 2-3 days duration, associated with indigestion-like symptoms and gas. I discussed case with ED doctor and accepted the admission for atypical chest pain rule out acute coronary syndrome The differential diagnosis includes: 1. Gastroesophageal reflux disease (GERD) 2. Angina 3. Acute coronary syndrome 4. Esophageal spasm 5. Peptic ulcer disease 6. Bowel obstruction Given the patient's history of atrial fibrillation and description of symptoms, GERD is the most likely diagnosis. However, cardiac causes cannot be ruled out without further testing. Plan: 1. EKG showed some sinus bradycardia no acute ST changes, troponins unremarkable x 3 2. Chest x-ray showed no acute cardiopulmonary process however significantly distended loops of bowel were noted check CT scan of the abdomen 3. Consider upper GI series or endoscopy to evaluate for GERD or peptic ulcer di linae, GI consult 4. Initiate trial of proton pump inhibitor for symptomatic relief 5. Educate patient on lifestyle modifications for GERD (avoid trigger foods, eat smaller meals, avoid lying down after eating) Precautions: - Continue Warfarin as prescribed for atrial fibrillation dosing by pharmacy - Monitor blood pressure due to reported recent low readings - Address difficulty urinating -check urine analysis, monitor with postvoid residual Chronic conditions A-fib Continue with Coumadin dosing by pharmacy Hypothyroid Continue with levothyroxine Blood work overall unremarkable with white count 7.5 hemoglobin 13.7 Renal function unremarkable with sodium 139 potassium 4 BUN 26 creatinine 1 Calcium 9.7 magnesium 2.2 unremarkable Liver enzymes unremarkable Pending CT scan of the abdomen rule out obstructive bowel due to distended loops of bowel on x-ray Pending GI evaluation Pending cardiology evaluation Full code DVT prophylaxis on Coumadin for A-fib dosing by pharmacy
[2025-03-19] MEDS: PANTOPRAZOLE 40 MG TABLET PO SCH (09:51)
[2025-03-19] MEDS: LEVOTHYROXINE 75 MCG TAB PO SCH (09:51)
--- NOTE | 2025-03-19 10:34 | P.CONS ---
History of Present Illness - Reason for Consult Consult date: 03/19/25 GERD Requesting physician: Jacky Peña - Chief Complaint Indigestion - History of Present Illness This a pleasant 84-year-old male with a history of atrial fibrillation on Coumadin, hyperlipidemia, GERD, thyroid disorder and sleep apnea who presented to the emergency department yesterday with complaints of indigestion and pain and gas buildup in his chest. States that it began 2 days ago but he was concerned that maybe he was having heart problems or could cause a stroke so he came into the emergency department. States he does have a history of acid reflux that is intermittent. He takes omeprazole 40 mg daily. Denies any history of peptic ulcer disease to his knowledge. Denies any abdominal pain nausea or vomiting. No difficulty with swallowing. Denies any change to his diet or new medications. States pain and indigestion have resolved. States liza t he feels that his bowels have been a little bit looser but that has been something that has been ongoing. History of upper endoscopy he said many years ago. Cardiology following for chest pain. Troponins negative x 3. Labs are unremarkable. No elevation in LFTs. Medicine team has ordered a CAT scan of the abdomen and pelvis. Review of Systems REVIEW OF SYSTEMS: CARDIOPULMONARY: No chest pain or shortness of breath. Gastrointestinal: Epigastric pain now resolved. Indigestion now resolved. No nausea or vomiting. No hematemesis, coffee-ground emesis. No rectal bleeding, or melena. GENITOURINARY: No dysuria or hematuria. MUSCULOSKELETAL: Reports normal range of motion. SKIN: No rashes. No jaundice. ENDOCRINE: No chills, fevers. No excessive weight gain or loss. No polydipsia or polyuria. PSYCHIATRIC: Unremarkable. NEUROLOGY: No change in mental status. Denies dizziness, headache. ENT: Vision unremarkable. CONSTITUTIONAL: No recent weight loss. No fever, chills, night sweats. Past Medical History Past Medical History: Atrial Fibrillation, GERD/Reflux, Hyperlipidemia, Sleep Apnea/CPAP/BIPAP, Thyroid Disorder Additional Past Medical History / Comment(s): CPAP; SUPERFICIAL BLOOD CLOT LEFT LEG History of Any Multi-Drug Resistant Organisms: None Reported Past Surgical History: Hernia Repair Additional Past Surgical History / Comment(s): carpal tunnel Past Anesthesia/Blood Transfusion Reactions: No Reported Reaction Past Psychological History: No Psychological Hx Reported Smoking Status: Former smoker Past Alcohol Use History: None Reported Past Drug Use History: None Reported Medications and Allergies Home Medications Medication Instructions Recorded Confirmed Type Fish Oil/Dha/Epa [Fish Oil 1,200 1 cap PO DAILY 04/09/14 03/19/25 History mg Fish Oil] Vitamin B Complex 1 cap PO HS 09/20/16 03/19/25 History Cholecalciferol [Vitamin D3 (25 25 mcg PO DAILY 03/19/25 03/19/25 History Mcg = 1000 Iu)] Levothyroxine Sodium [Synthroid] 150 mcg PO DAILY 03/19/25 03/19/25 History Omeprazole [PriLOSEC] 40 mg PO HS 03/19/25 03/19/25 History Warfarin [Coumadin] 1.5 mg PO MOFR 03/19/25 03/19/25 History Warfarin [Coumadin] 3 mg PO SUTUWETHSA 03/19/25 03/19/25 History traZODone HCL [Desyrel] 50 mg PO HS 03/19/25 03/19/25 History Allergies Allergy/AdvReac Type Severity Reaction Status Date / Time No Known Allergies Allergy Verified 03/19/25 08:15 Physical Exam Vitals: Vital Signs Temp Pulse Resp BP Pulse Ox 03/19/25 09:56 66 17 147/79 96 03/19/25 06:47 68 18 133/71 98 03/19/25 02:00 53 L 18 105/63 97 03/18/25 22:43 58 L 18 131/82 97 03/18/25 20:16 97.7 F 60 16 122/70 95 Intake and Output 03/18/25 03/19/25 03/19/25 22:59 06:59 14:59 Other: Weight 98.883 kg General appearance: The patient is alert, oriented, appears in no acute distress. HET: Head is normocephalic and atraumatic. Conjunctiva pink. Sclera anicteric. Neck: Supple without lymphadenopathy. Trachea midline. Heart: Regular. Lungs: Equal expansion, normal respiratory effort. Abdomen: Soft, nontender, nondistended. Skin: No rashes. No jaundice. Extremities: Normal skin color and turgor. No pedal edema. Neurological: No focal deficits. Alert and oriented x3. Results CBC & Chem 7: 03/18/25 20:34 03/18/25 20:34 Labs: Abnormal Lab Results - Last 24 Hours (Table) 03/18/25 03/18/25 03/18/25 Range/Units 20:34 20:34 20:34 RBC 4.02 L (4.40-5.60) 10*6/uL Hct 39.2 L (39.6-50.0) % MCV 97.5 H (80.0-97.0) fL MCH 34.1 H (27.0-32.0) pg MPV 9.2 L (9.5-12.2) fL Eosinophils # 0.58 H (0.04-0.35) 10*3/uL Basophils # 0.11 H (0.00-0.10) 10*3/uL PT 23.7 H (10.0-12.5) sec INR 2.4 H (<1.2) BUN 26 H (9-20) mg/dL Assessment and Plan (1) GERD (gastroesophageal reflux disease) Narrative/Plan: 84-year-old male presenting with acid reflux and indigestion which she described as a pain midsternal to epigastric region and was concern for possible heart problem or stroke. This is in a patient with a history of acid reflux currently on omeprazole 40 mg daily at home with intermittent indigestion. No history of peptic ulcer disease, no new medications and no change in diet. Unclear etiology of increased indigestion however symptoms have completely resolved. Will increase omeprazole 40 mg to twice daily at home. While in hospital patient will be on Protonix 40 mg twice daily. Discussed with patient antireflux measures and recommend follow-up with gastroenterology in 2 weeks. Current Visit: Yes Status: Acute Code(s): K21.9 - GASTRO-ESOPHAGEAL REFLUX DISEASE WITHOUT ESOPHAGITIS SNOMED Code(s): 665240798 (2) Atrial fibrillation Current Visit: Yes Status: Acute Code(s): I48.91 - UNSPECIFIED ATRIAL FIBRILLATION SNOMED Code(s): 61714899 (3) Epigastric pain Narrative/Plan: Resolved. CAT scan abdomen pelvis ordered by medical team. Can follow-up results as an outpatient. Current Visit: Yes Status: Acute Code(s): R10.13 - EPIGASTRIC PAIN SNOMED Code(s): 34420367 Plan: 1. Continue symptomatic and supportive care 2. Protonix 40 mg twice daily while in hospital, then recommend discharge on omeprazole 40 mg twice daily 3. Discussed with patient antireflux measures for GERD 4. No plans on endoscopic evaluation 5. Recommend outpatient follow-up in 2 weeks with gastroenterology Thank you for this consultation, we will sign off at this time. Dr. Justine Grewal I agree with the dictator's note, documented as a scribe by Kelly Bragg.
--- NOTE | 2025-03-19 12:13 | CT ---
EXAMINATION TYPE: CT abdomen pelvis w con DATE OF EXAM: 03/19/2025 11:54 AM COMPARISON: 06/23/2014 CLINICAL INDICATION: Male, 84 years old with history of abd distention , dilated loops of bowel rule SBO, Abd distention, dilated loops of bowel rule SBO. TECHNIQUE: Axial images were obtained from above the diaphragm to the pubic rami in the axial plane a t 5 mm thick sections. Reconstructed images are reviewed on the computer in the coronal plane. CONTRAST: 80 ml mL of Isovue 300. Study performed with Oral Contrast DLP: 1111.8 mGycm, Automated exposure control for dose reduction was used. FINDINGS: Limited CT sections are obtained the lung bases. The lung bases are clear. CT ABDOMEN: Liver: Normal Spleen: Normal Pancreas: Normal Adrenal glands: The adrenal glands are normal. Gallbladder: Surgically absent Kidneys: No masses are evident. No hydronephrosis is present. There is a 4.4 cm cyst superior pole left kidney. Delayed images were obtained through the kidneys, which remain unremarkable. Aorta: Vascular calcification is within the aorta. Inferior vena cava: Normal. CT PELVIS: Oral contrast is present. No small bowel dilatation is evident. Oral contrast extends to t he mid small bowel. The ileum appears nondistended. Some fecal debris is within the colon. There is a n air-fluid level within the rectum. Appendix: Normal as visualized. Urinary bladder: Normal. Genitourinary structures: Prostate is normal Osseous structures: No suspicious lytic or sclerotic lesions. Degenerative disc changes lower lumbar spine IMPRESSION: 1. No suspicious changes to suggest obstruction. Small bowel loops appear nondilated with contrast e xtending to the proximal ileum. Follow-up as clinically indicated. [facility], , 03/19/2025 12:11 PM
[2025-03-19 12:35] VITALS: PULSE 72
[2025-03-19 14:19] VITALS: BP 130/74; RESP 20
--- NOTE | 2025-03-19 16:33 | P.DS ---
Providers Date of admission: 03/19/25 00:11 Expected date of discharge: 03/19/25 Attending physician: Jacky Peña MD Consults: 03/19/25 00:11 Consult Physician Routine Consulting Provider: [facility] Consult Reason/Comments: chest pain Do you want consulting provider notified?: Yes 03/19/25 09:33 Consult Physician Routine Consulting Provider: Joie Grewal Consult Reason/Comments: GERD Do you want consulting provider notified?: Yes Primary care physician: [facility] Course: 84 year old M with PMH of AFib on Coumadin presented to the ED for chest pain/indigestion. In the ED he underwent extensive evaluation BP 122/70, HR 60, T 97.7F, RR 16, 95% on RA. CBC, Coag panel, CMP significant for RBC 4.02, Hct 39.2, MCV 97.5, PT 23.7, INR 2.4, BUN 26. Trop 0.014, < 0.012 x 2 with EKG showing sinus bradycardia. CXR showed dilated loops of bowel CT AP showed no suspicion for obstruction. Patient was admitted for further workup and management. GI recommended Prilosec 40 mg PO BID on discharge and outpatient follow up. Discussed with Dr. Navarrete, he cleared the patient from a cardiac perspective. 03/19 Patient was seen and examined. Denies chest pain, shortness of breath or palpitations. Discharge Plan: Prilosec sent to pharmacy. Follow up with Cardiology + GI within 1 and 2 weeks respectively and PCP within 1-2 days of discharge. General: non toxic, no distress, appears at stated age Derm: warm, dry Head: atraumatic, normocephalic, symmetric Eyes: EOMI, no lid lag, anicteric sclera Mouth: no lip lesion, mucus membranes moist Cardiovascular: S1S2 reg, no murmur Lungs: Decreased BS bilateral, no rhonchi, no rales , no accessory muscle use Ext: no gross muscle atrophy, no edema, no contractures Neuro: no focal neuro deficits Psych: Alert, oriented, appropriate affect Discharge Diagnosis: GERD Chest pain with ACS ruled out Atrial fibrillation Hypothyroidism This complex discharge took 35 minutes to complete. Patient Condition at Discharge: Stable Plan - Discharge Summary New Discharge Prescriptions: New Omeprazole 40 mg PO BID #60 cap Continue Fish Oil/Dha/Epa [Fish Oil 1,200 mg Fish Oil] 1 cap PO DAILY Vitamin B Complex 1 cap PO HS Cholecalciferol [Vitamin D3 (25 Mcg = 1000 Iu)] 25 mcg PO DAILY traZODone HCL [Desyrel] 50 mg PO HS Warfarin [Coumadin] 1.5 mg PO MOFR Warfarin [Coumadin] 3 mg PO SUTUWETHSA Levothyroxine Sodium [Synthroid] 150 mcg PO DAILY Discontinued Omeprazole [PriLOSEC] 40 mg PO HS Discharge Medication List Fish Oil/Dha/Epa [Fish Oil 1,200 mg Fish Oil] 1 cap PO DAILY 04/09/14 [History] Vitamin B Complex 1 cap PO HS 09/20/16 [History] Cholecalciferol [Vitamin D3 (25 Mcg = 1000 Iu)] 25 mcg PO DAILY 03/19/25 [History] Levothyroxine Sodium [Synthroid] 150 mcg PO DAILY 03/19/25 [History] Omeprazole 40 mg PO BID #60 cap 03/19/25 [Rx] Warfarin [Coumadin] 1.5 mg PO MOFR 03/19/25 [History] Warfarin [Coumadin] 3 mg PO SUTUWETHSA 03/19/25 [History] traZODone HCL [Desyrel] 50 mg PO HS 03/19/25 [History] Follow up Appointment(s)/Referral(s): Flaquito Navarrete MD [Medical Doctor] - 1 Week Joie Grewal MD [STAFF PHYSICIAN] - 2 Weeks Tico Salas DO [Primary Care Provider] - 1-2 days Discharge Disposition: HOME SELF-CARE
[2025-03-19] MEDS ORDERED: WARFARIN 3 MG TAB PO SCH (18:00)
--- NOTE | 2025-03-20 12:02 | CA ---
Transthoracic Echo Report Name: Richard Verma Age: 84 Gender: M : 1940 Exam Date: 03/19/2025 10:46 Exam Location: [facility] Ht (in): 69 Wt (lb): 218 Ordering Physician: Rufino Nuno MD Attending/Referring Phys: Photographer News Yaritza Villalba RDCS Procedure CPT: Indications: Chest Pain, Dilated cardiomyopathy Cardiac Hx: Technical Quality: Technically difficult study Contrast 1: Definity Total Dose (mL): 2 Contrast 2: Total Dose (mL): MEASUREMENTS (Male / Female) Normal Values 2D ECHO LV Diastolic Diameter PLAX 5.6 cm 4.2 - 5.9 / 3.9 - 5.3 cm LV Systolic Diameter PLAX 3.0 cm IVS Diastolic Thickness 0.8 cm 0.6 - 1.0 / 0.6 - 0.9 cm LVPW Diastolic Thickness 0.8 cm 0.6 - 1.0 / 0.6 - 0.9 cm LV Relative Wall Thickness 0.3 RV Internal Dim ED PLAX 3.9 cm LVOT Diameter 1.8 cm Aortic Root Diameter 3.6 cm LV Diastolic Volume MOD BP 79.1 cm??? 67 - 155 / 56 - 104 cm??? LV Systolic Volume MOD BP 21.8 cm??? 22 - 58 / 19 - 49 cm??? LV Ejection Fraction MOD BP 72.4 % >= 55 % LV Cardiac Index MOD BP 1620.8 cm???/min???m??? LV Diastolic Volume MOD 4C 124.1 cm??? LV Systolic Volume MOD 4C 39.1 cm??? LV Ejection Fraction MOD 4C 68.5 % LV Cardiac Index MOD 4C 2406.2 cm???/min???m??? LV Diastolic Length 4C 8.5 cm LV Systolic Length 4C 7.7 cm LV Diastolic Volume MOD 2C 39.0 cm??? LV Systolic Volume MOD 2C 9.9 cm??? LV Ejection Fraction MOD 2C 74.6 % LV Cardiac Index MOD 2C 825.0 cm???/min???m??? LV Diastolic Length 2C 6.5 cm LV Systolic Length 2C 5.9 cm LA Volume 51.8 cm??? 18 - 58 / 22 - 52 cm??? LA Volume Index 23.3 cm???/m??? 16 - 28 cm???/m??? DOPPLER AV Peak Velocity 151.7 cm/s AV Peak Gradient 9.2 mmHg AV Mean Velocity 117.3 cm/s AV Mean Gradient 5.8 mmHg AV Velocity Time Integral 37.9 cm LVOT Peak Velocity 86.2 cm/s LVOT Peak Gradient 3.0 mmHg LVOT Velocity Time Integral 20.8 cm LVOT Stroke Volume 52.7 cm??? LVOT Stroke Volume Index 24.6 ml/m??? LVOT Cardiac Index 1492.5 cm???/min???m??? AV Area Cont Eq vti 1.4 cm??? AV Area Cont Eq pk 1.4 cm??? MV Area PHT 2.6 cm??? Mitral E Point Velocity 50.6 cm/s Mitral A Point Velocity 83.2 cm/s Mitral E to A Ratio 0.6 MV Deceleration Time 292.9 ms MV E' Velocity 5.4 cm/s Mitral E to MV E' Ratio 9.3 FINDINGS Left Ventricle Normal Left ventricular size, wall thickness, systolic function with no obvious regional wall motion abnormalities. Normal Left ventricular diastolic filling pattern. Left ventricular ejection fraction is estimated at 55-60 %. Right Ventricle Right ventricle not well visualized. Right Atrium Right atrium not well visualized. Left Atrium Normal left atrial size. Mitral Valve Structurally normal mitral valve. Mild mitral annular calcification. Trace to mild mitral regurgitation. Aortic Valve No aortic valve stenosis or regurgitation. Tricuspid Valve Structurally normal tricuspid valve. Mild tricuspid regurgitation. Pulmonic Valve Structurally normal pulmonic valve. Pericardium No pericardial effusion. Aorta Normal size aortic root and proximal ascending aorta. CONCLUSIONS Technically difficult study with poor acoustic windows LVEF 55 to 60% No obvious regional wall motion abnormality Mild mitral regurgitation Mild tricuspid regurgitation No pericardial effusion Previewed by: Dr Flaquito Navarrete (Electronically Signed) Final Date: 20 March 2025 12:01
== END 2025-03-19 14:18 | disposition home or self-care (01) ==
LOC: EC 19:45 → 6NMEDSUR 03-19 00:11
PROVIDERS: ADMIT Internal Medicine; ATTEND Internal Medicine
DX: K21.9 Gastro-esophageal reflux disease without esophagitis (principal); I20.9 Angina pectoris, unspecified; I48.91 Unspecified atrial fibrillation; E03.9 Hypothyroidism, unspecified; E78.5 Hyperlipidemia, unspecified; G47.30 Sleep apnea, unspecified; Z79.01 Long term (current) use of anticoagulants; Z79.1 Long term (current) use of non-steroidal anti-inflammatories (NSAID); Z79.899 Other long term (current) drug therapy; Z79.890 Hormone replacement therapy; Z87.891 Personal history of nicotine dependence
CPT/HCPCS: 99285; 36415; 93005; 80053; 83735; 84484 ×2; 85025; 85610; 85730; 71046; 74177; G0378; C8929; Q9957; Q9967; 93306